=== PATIENT | female | born 1995 | race African-American/Black ===

== ENCOUNTER 2016-11-19 15:27 | Emergency (ER) | payer OTHER ==
[~2016-11-19] VITALS: Ht 165.1 cm; Wt 63.6 kg
[2016-11-19 15:31] VITALS: TEMP 99.8
[2016-11-19] MEDS ORDERED: LEVORA-28 30 MC1 TA1 PO (15:34)
[2016-11-19] MEDS ORDERED: CELEXA 20MG20 MG/TAB PO (15:35)
[2016-11-19 17:55] LABS: BASO # 0.1 (0.0-0.2); BASO % 0.5 % (0.0-2.0); EOS # 0.1 (0.0-0.7); EOS % 1.2 % (0-4.0); GRAN # 7.1 (1.4-6.5); GRAN % 77.3 % (42.2-75.2); HEMATOCRIT 42.3 % (35.0-45.0); HEMOGLOBIN 14.1 g/dl (12.0-15.0); LYMPH # 1.4 (1.2-3.4); LYMPH % 15.3 % (20.0-51.0); MEAN CELL VOLUME 87 fl (80.0-95.0); MEAN CORPUSCULAR HEMOGLOBIN 29 pg (26.0-32.0); MEAN CORPUSCULAR HGB CONC 33 g/dl (33.0-37.0); MEAN PLATELET VOLUME 9.5 fl (7.4-10.4); MONO # 0.5 (0.1-0.6); MONO % 5.4 % (1.7-9.3); PLATELET COUNT 318 K/mm3 (130-400); RED BLOOD COUNT 4.88 M/mm3 (4.10-5.30); REDCELL DISTRIBUTION WIDTH-CV 12.6 % (11.5-14.5); WHITE BLOOD COUNT 9.1 K/mm3 (4.8-10.8)
[2016-11-19 18:03] LABS: CALCIUM 9.7 mg/dL (8.4-10.2); CREATININE, serum 0.7 mg/dL (0.52-1.25); MAGNESIUM 1.8 mg/dL (1.6-2.3)
[2016-11-19] MEDS ORDERED: REGLAN 10MG10 MG/TAB PO (18:55)
[2016-11-19 19:13] VITALS: BP 133/95; PULSE 92
== END 2016-11-19 19:13 | disposition home or self-care (01) ==
LOC: COL.ER 15:27
PROVIDERS: Physician Assistant
DX: R55 Syncope and collapse (principal); F32.9 Major depressive disorder, single episode, unspecified; F41.9 Anxiety disorder, unspecified

== ENCOUNTER → 2017-06-13 | Outpatient (CLI) | payer OTHER ==
[~2017-06-13] MED LIST: CELEXA 20MG20 MG/TAB PO; LEVORA-28 30 MC1 TA1 PO; REGLAN 10MG10 MG/TAB PO
== END ==
LOC: COL.RAD 07:56
DX: R93.2 Abnormal findings on diagnostic imaging of liver and biliary tract (principal); R10.13 Epigastric pain; R07.89 Other chest pain; R11.2 Nausea with vomiting, unspecified; A04.8 Other specified bacterial intestinal infections
CPT/HCPCS: A9537; J2270; J2805

== ENCOUNTER 2017-08-26 10:08 | Emergency (ER) | payer SELFPAY ==
[~2017-08-26] VITALS: Ht 165.1 cm; Wt 53.8 kg
[2017-08-26 10:13] VITALS: TEMP 98.6
[2017-08-26] MEDS ORDERED: BUSPAR10 MG PO (11:05)
[2017-08-26 11:14] LABS: BASO # 0.1 (0.0-0.2); BASO % 0.6 % (0.0-2.0); EOS # 0.2 (0.0-0.7); EOS % 1.5 % (0-4.0); GRAN # 8.5 (1.4-6.5); GRAN % 80.6 % (42.2-75.2); HEMATOCRIT 37.5 % (35.0-45.0); HEMOGLOBIN 13.3 g/dl (12.0-15.0); LYMPH # 1.2 (1.2-3.4); LYMPH % 11.5 % (20.0-51.0); MEAN CELL VOLUME 83 fl (80.0-95.0); MEAN CORPUSCULAR HEMOGLOBIN 29 pg (26.0-32.0); MEAN CORPUSCULAR HGB CONC 36 g/dl (33.0-37.0); MEAN PLATELET VOLUME 9.5 fl (7.4-10.4); MONO # 0.6 (0.1-0.6); MONO % 5.2 % (1.7-9.3); PLATELET COUNT 324 K/mm3 (130-400); RED BLOOD COUNT 4.52 M/mm3 (4.10-5.30); REDCELL DISTRIBUTION WIDTH-CV 12.8 % (11.5-14.5)
[2017-08-26 11:25] LABS: COLLECTION METHOD CLEAN CATCH
[2017-08-26 11:27] LABS: ALBUMIN 4.1 gm/dL (3.5-5.0); BILIRUBIN,TOTAL 0.5 mg/dL (0.0-1.0); C-REACTIVE PROTEIN 0.7 mg/dL (0.0-0.9); CALCIUM 9.7 mg/dL (8.4-10.2); CREATININE, serum 0.65 mg/dL (0.52-1.25); POTASSIUM 3.7 mmol/L (3.4-5.0); TOTAL PROTEIN 7.7 gm/dL (6.4-8.2)
[2017-08-26 11:38] LABS: MUCOUS Present /lpf; PH 5 (5-8); SQUAMOUS EPITHELIAL 0-2 /hpf; URINE APPEARANCE Hazy; URINE BACTERIA None Seen /hpf; URINE BILIRUBIN Negative (NEGATIVE); URINE BLOOD Negative (NEGATIVE); URINE COLOR Amber; URINE GLUCOSE Negative (NEGATIVE); URINE KETONE 2+ (NEGATIVE); URINE LEUKOCYTE ESTERASE Negative (NEGATIVE); URINE NITRATE Negative (NEGATIVE); URINE PROTEIN(semi-quant) 2+ (NEGATIVE)
[2017-08-26] MEDS ORDERED: OMNICEF 300MG300 MG PO (15:25)
[2017-08-26 15:46] VITALS: BP 132/78; PULSE 91
== END 2017-08-26 15:43 | disposition home or self-care (01) ==
LOC: COL.ER 10:08
PROVIDERS: Physician Assistant
DX: O26.891 Other specified pregnancy related conditions, first trimester (principal); R10.32 Left lower quadrant pain; F41.9 Anxiety disorder, unspecified; F32.9 Major depressive disorder, single episode, unspecified; Z3A.01 Less than 8 weeks gestation of pregnancy
CPT/HCPCS: J2765; J7030